=== PATIENT | female | born 1960 | race Caucasian/White ===

== ENCOUNTER 2018-12-31 09:08 | Emergency (ER) | payer OTHER, MEDICAID ==
[~2018-12-31] VITALS: Ht 165.1 cm; Wt 74.8 kg
[2018-12-31] MEDS ORDERED: SODIUM CHLORIDE 0.9% 1,000 ML IVB ONE (09:18)
[2018-12-31] MEDS ORDERED: PANTOPRAZOLE 40 MG/10 ML VIAL INJ IV STA (09:18)
[2018-12-31] MEDS ORDERED: ONDANSETRON HCL 4 MG/2 ML VIAL IV ONE (09:30)
[2018-12-31 09:44] LABS: Hematocrit 44.8 % (36.0-46.0); Hemoglobin 14.9 g/dL (12.2-16.2); Mean Corpuscular Hgb Conc. 33.2 g/dL (32.0-36.0); Mean Corpuscular Volume 90.2 fL (80.0-100.0); Platelet Count (auto) 309 10^3/uL (140-450); Red Blood Cells 4.97 10^6/uL (4.0-5.20); Red Cell Distribution Width 13.7 % (11.8-14.3); White Blood Cell 18.3 10^3/uL (4.4-10.8)
[2018-12-31] MEDS ORDERED: MORPHINE SULFATE 4 MG/ML SYR/VIAL IV ONE (09:45)
[2018-12-31 09:48] LABS: Basophils % (manual) 0 (0.0-2.0); Blast Cells 0; Metamyelocytes % 0; Myelocytes % 0; Promyelocytes % 0; Reactive Lymphocytes 0
[2018-12-31 09:53] LABS: Albumin 3.8 g/dL (3.4-5.0); Anion Gap 5 (5-15); Blood Urea Nitrogen 21 mg/dL (7-18); Calcium 8.4 mg/dL (8.5-10.1); Carbon Dioxide 23 mmol/L (21-32); Chloride 114 mmol/L (98-107); Glucose 149 mg/dL (74-106); Lipase 86 U/L (73-393); Potassium 3.9 mmol/L (3.5-5.1); Sodium 142 mmol/L (136-145)
[2018-12-31 09:59] LABS: Alanine Aminotransferase 22 U/L (13-56); Alkaline Phosphatase 100 U/L (45-117); Aspartate Aminotransferase 10 U/L (15-37); BUN/Creatinine Ratio 22.3; Bilirubin, Total 0.4 mg/dL (0.2-1.0); GFR African American 79 mL/min; GFR Non-African American 65 mL/min; Total Protein 6.9 g/dL (6.4-8.2)
[2018-12-31 10:05] LABS: Urine Bacteria NONE SEEN /hpf (None Seen); Urine Blood 1+ /uL (Negative); Urine Mucus FEW (None Seen); Urine Specific Gravity 1.023 (1.001-1.035); Urine WBC 1 /hpf (0 - 5)
[2018-12-31 10:34] LABS: Band Neutrophils % (manual) 3; Eosinophils % (manual) 1 (0-7); Lymphocytes % (manual) 4 (10.0-50.0); Monocytes % (manual) 4 (0-12)
[2018-12-31 12:00] VITALS: BP 122/75
== END 2018-12-31 12:34 | disposition home or self-care (01) ==
LOC: ER 09:08 → EDBD 09:08 → ER 12:34
DX: B34.9 Viral infection, unspecified (principal); R11.2 Nausea with vomiting, unspecified; R19.7 Diarrhea, unspecified; R10.84 Generalized abdominal pain; F17.210 Nicotine dependence, cigarettes, uncomplicated
CPT/HCPCS: 36415; 76705; 80053; 81001; 83690; 84484; 85007; 85027; 93005; 96361; 96374; 96375; 99284; C9113; J2270; J2405; J7030

== ENCOUNTER 2021-09-27 08:21 | Emergency (ER) | payer OTHER, MEDICAID ==
[~2021-09-27] VITALS: Ht 154.9 cm; Wt 66.8 kg
[2021-09-27 08:59] VITALS: BP 151/75
[2021-09-27] MEDS ORDERED: ACET-1080 PO (09:17)
[2021-09-27] MEDS ORDERED: AMOX500T86 PO (09:17)
== END 2021-09-27 09:28 | disposition home or self-care (01) ==
LOC: ER 08:21
DX: S61.214A Laceration without foreign body of right ring finger without damage to nail, initial encounter (principal); S61.254A Open bite of right ring finger without damage to nail, initial encounter; M10.9 Gout, unspecified; F17.210 Nicotine dependence, cigarettes, uncomplicated; Z79.2 Long term (current) use of antibiotics; Z79.899 Other long term (current) drug therapy; Z88.8 Allergy status to other drugs, medicaments and biological substances; W54.0XXA Bitten by dog, initial encounter; Y93.89 Activity, other specified; Y92.89 Other specified places as the place of occurrence of the external cause; Y99.8 Other external cause status
CPT/HCPCS: 12002; 73130; 99283; J2001

== ENCOUNTER 2021-10-07 08:46 | Emergency (ER) | payer OTHER, MEDICAID ==
[~2021-10-07] VITALS: Ht 154.9 cm; Wt 69.3 kg
[~2021-10-07 08:46] MED LIST: ACET-1080 PO; AMOX500T86 PO
[2021-10-07 11:45] VITALS: BP 108/72
== END 2021-10-07 12:35 | disposition home or self-care (01) ==
LOC: ER 08:46
DX: S61.214D Laceration without foreign body of right ring finger without damage to nail, subsequent encounter (principal); X58.XXXD Exposure to other specified factors, subsequent encounter

== ENCOUNTER 2024-09-18 18:05 | Emergency (ER) | payer OTHER, MEDICAID ==
[~2024-09-18] VITALS: Ht 165.1 cm; Wt 66.8 kg
--- NOTE | 2024-09-18 19:01 | ED.PDOC ---
History of Present Illness(SKN HPI Comments BROUGHT IN BY AMBULANCE FOR BEE STING TO TONGUE. REPORTS BEE STING HAPPENED EARLIER IN THE DAY, WENT HOME AND SELF MEDICATED WITH BENADRYL 50MG PO AND NORCO FOR PAIN. STATES SHE HAD SWELLING AND PAIN TO TONGUE THAT RADIATED TO EAR. STATES SHE WAS EXPERIENCING PAIN AND BURNING TO EARS. REPORTS CALLING TO BE BROUGHT IN DUE TO PAIN IN EAR LINGERING. Chief Complaint: Insect Bite Time Seen by MD: 18:15 Primary Care Provider: NO PCP History of Present Illness: Nurses Notes, Medications, Allergies Allergies: Coded Allergies: Hydrocodone (Verified Allergy, Severe, rash, 10/13/14) Ibuprofen (Verified Allergy, Severe, rash, 10/13/14) Pregabalin (Verified Allergy, Severe, rash, 10/13/14) Simvastatin (Verified Allergy, Severe, rash, 10/13/14) Valproic Acid (Verified Allergy, Severe, rash, 10/13/14) Egg-derived Products (Verified Allergy, Unknown, 09/18/24) Home Meds Active Scripts Acetaminophen (Tylenol 8 Hour Arthritis) 650 Mg Tab, 650 MG PO TID, #20 TAB Prov:KAREN CHIN 09/27/21 Amoxicillin & Pot Clavulanate (Augmentin) 500 Mg Tab, 500 MG PO BID, #14 TAB Prov:KAREN CHIN 09/27/21 Information Source: Patient Mode of Arrival: EMS Past Medical History PAST MEDICAL HISTORY: Gout Surgical History: Denies all surgeries AGENCY OPERATOR History: No Pertinent AGENCY OPERATOR History Family History Family History: Family hx of DM, Family hx of heart cammy Social History Smoker: Cigarettes, Less Than 1 Pack/Day Alcohol: Denies ETOH Use Drugs: Denies Drug Use Lives In: Home Constitutional: denies: chills, diaphoresis, fatigue, fever, malaise, sweats, weakness, others EENTM: reports: ear pain, others (TONGUE PAIN); denies: blurred vision, double vision, ear bleeding, ear discharge, ear drainage, ear ringing, eye pain, eye redness, hearing loss, mouth pain, mouth swelling, nasal discharge, nose bleeding, nose congestion, nose pain, photophobia, tearing, throat pain, throat swelling, voice changes Respiratory: denies: cough, hemoptysis, orthopnea, SOB at rest, shortness of breath, SOB with excertion, stridor, wheezing, others Cardiovascular: denies: chest pain, dizzy spells, diaphoresis, Dyspnea on exertion, edema, irregular heart beat, left arm pain, lightheadedness, p alpitations, PND, syncope, others Gastrointestinal: denies: abdomen distended, abdominal pain, blood streaked bowels, constipated, diarrhea, dysphagia, difficulty swallowing, hematemesis, melena, nausea, poor appetite, poor fluid intake, rectal bleeding, rectal pain, vomiting, others Genitourinary: denies: abnormal vagina bleeding, burning, dyspareunia, dysuria, flank pain, frequency, hematuria, incontinence, pain, , vagina discharge, urgency, others Neurological: denies: dizziness, fainting, headache, left sided numbness, left sided weakness, numbness, paresthesia, pre-existing deficit, right sided numbness, right sided weakness, seizure, speech problems, tingling, tremors, weakness, others Musculoskeletal: denies: back pain, gout, joint pain, joint swelling, muscle pain, muscle stiffness, neck pain, others Integumetry: denies: bruises, change in color, change in hair/nails, dryness, laceration, lesions, lumps, rash, wounds, others Allergic/Immunocompromised: denies: Difficulty Healing, Frequent Infections, Hives, Itching, others Hematologic/Lymphatic: denies: anemia, blood clots, easy bleeding, easy bruising, swollen glands, others Endocrine: denies: excessive hunger, excessive sweating, excessive thirst, excessive urination, flushing, intolerance to cold, intolerance to heat, unexplained weight gain, unexplained weight loss, others Psychiatric: denies: anxiety, bipolar disorder, depression, hopeless, panic disorder, schizophrenia, sleepless, suicidal, others Physical Exam General Appearance: No Apparent Distress, Normal HEENT: Normal ENT Inspection, Pharynx Normal, TMs Normal Neck: Full Range of Motion, Non-Tender Respiratory: Chest Non-Tender, Lungs Clear, No Accessory Muscle Use, No Respiratory Distress, Normal Breath Sounds Cardiovascular: No Edema, No JVD, No Murmur, No Gallop, Normal Peripheral Pulses, Regular Rate/Rhythm Breast Exam: Deferred Gastrointestinal: No Organomegaly, Non Tender, No Pulsatile Mass, Normal Bowel Sounds, Soft Genitalia: Deferred Pelvic: Deferred Rectal: Deferred Extremities: Normal capillary refill, Normal inspection, Normal range of motion, Non-tender, No pedal edema Musculoskeletal : Apperance: Normal Neurologic: Alert, check pilot II-XII nml as Tested, No Motor Deficits, Normal Affect, Normal Mood, No Sensory Deficits Cerebellar Function: Normal Reflexes: NOT DONE Skin: Dry, Normal Color, Warm Lymphatic: No Adenopathy Was a procedure done? Was a procedure done?: No Differential Diagnosis (INTG) Differential Diagnosis: Insect Envenomation, Puncture Wound X-Ray, Labs, Meds, VS Vital Signs Date Time Temp Pulse Resp B/P (MAP) Pulse Ox O2 Delivery O2 Flow Rate FiO2 09/18/24 18:15 99.0 101 18 148/82 95 99.0 X-Ray, Labs, Meds, VS Comment PATIENT REPORTS IMPROVEMENT REQUESTING DISCHARGE AT THIS TIME. ER RETURN PRECAUTIONS GIVEN ADVISED TO FOLLOW UP WITH HER PCP NEEDED. Time of 1ST Reevaluation: 18:59 Reevaluation 1ST: Improved Patient Education/Counseling: Diagnosis, Treatment, Prognosis, Need For Follow Up Family Education/Counseling: No Family Present SEPSIS Sepsis Screen Date sepsis recognized/suspect: Sep 18, 2024 Time Sepsis recognized/suspect: 1811 Recent Procedure: No On Antibiotic Therapy: No Respiratory Rate >20: No Heart Rate >90: Yes Temp<36 C (96.8 F) or >38.3 C: No SBP <90 or MAP <65 mmHG: No New Acute Mental Status Change: No Is the patient on CPAP, BIPAP,: No Physician Orders Prednisone Tablet (09/18/24 19:00) Vital Signs Date Time Temp Pulse Resp B/P (MAP) Pulse Ox O2 Delivery O2 Flow Rate FiO2 09/18/24 18:15 99.0 101 18 148/82 95 99.0 Departure 1 Departure Time of Disposition: 19:00 Impression: Primary Impression: Bee sting Qualified Codes: T63.441A - Toxic effect of venom of bees, accidental (unintentional), initial encounter Disposition: HOME / SELF CARE / HOMELESS Condition: Stable Discharged With: Other ([facility]) Critical Care Note Critical Care Time?: No Stability Stability form required: GAYATHRI Saini Sep 18, 2024 19:01
[2024-09-18] MEDS: predniSONE 20 MG TAB PO ONE (19:02)
[2024-09-18 19:05] VITALS: BP 138/78; PULSE 68; RESP 16; TEMP 98.7; O2SAT 97
== END 2024-09-18 19:08 | disposition home or self-care (01) ==
LOC: EDBD 18:05 → ER 18:05
DX: T63.441A Toxic effect of venom of bees, accidental (unintentional), initial encounter (principal); F17.210 Nicotine dependence, cigarettes, uncomplicated; Z88.6 Allergy status to analgesic agent; Z88.5 Allergy status to narcotic agent; Y92.89 Other specified places as the place of occurrence of the external cause
CPT/HCPCS: 99283; J7512